=== PATIENT | male | born 1975 | race Two or more races ===

== ENCOUNTER 2016-05-27 08:59 | Emergency (ER) | payer OTHER ==
--- NOTE | 2016-05-27 10:23 | RAD ---
EXAMINATION:CHEST - 2 VIEWS CLINICAL INDICATION: Chest pain. Fall injuries to left side. COMPARISON:none FINDINGS: The cardiomediastinal silhouette is within normal limits. There is no adenopathy identified. There is a left pleural effusion. Subsegmental left basilar atelectasis is noted as well. There is no visible pneumothorax currently. A right lung is clear. There are subtle cortical irregularities involving the left seventh and eighth ribs. Nondisplaced fractures are suspected. IMPRESSION: Possible left seventh and eighth rib fractures with secondary left pleural effusion and basilar atelectasis. There is no visible pneumothorax.
[2016-05-27] MEDS ORDERED: IBUPROFEN 600 MG TABLET ONE (10:52)
[2016-05-27] MEDS ORDERED: ACETAMINOPHEN 325 MG TABLET ONE (10:52)
== END 2016-05-27 11:11 | disposition home or self-care (01) ==
LOC: ED 08:59
DX: S22.32XA Fracture of one rib, left side, initial encounter for closed fracture (principal); W17.89XA Other fall from one level to another, initial encounter; Y93.01 Activity, walking, marching and hiking; Y92.9 Unspecified place or not applicable
CPT/HCPCS: 71020; 94010; 99283 ×2; A9270 ×2

== ENCOUNTER 2016-06-30 20:43 | Emergency (ER) | payer OTHER ==
[2016-06-30] MEDS ORDERED: HALOPERIDOL LACTATE 5 MG/1 ML AMP ONE (21:15)
[2016-06-30] MEDS ORDERED: MULTIVITAMINS 10 ML, THIAMINE HCL 100 MG, FOLIC ACID 2 MG, MAGNESIUM SULFATE 1 G/2 ML 2... IV ONE ×5 (21:15)
[2016-06-30] MEDS ORDERED: LORAZEPAM 2 MG/ML 1ML SDV ONE ×2 (21:16→21:45)
[2016-06-30 21:25] LABS: ABSOLUTE NEUTROPHIL COUNT 4.6 K/mm3 (1.8-7.7); BASO # 0.1 K/mm3 (0.0-0.2); BASO % 0.8 % (0.2-1.0); EOS # 0.3 (0.0-0.5); EOS % 3.2 % (0.9-2.9); HEMOGLOBIN 15.7 gm/l (14.0-18.0); IMM NEUT% 0.2 % (0-1); LYMPH # 2.4 (1.0-4.8); LYMPH % 28.1 % (15-45); MEAN CELL VOLUME 95.8 fl (80.0-94.0); MEAN CORPUSCULAR HEMOGLOBIN 32.7 pg (27.0-31.0); MEAN CORPUSCULAR HGB CONC 34.1 g/dl (33.0-37.0); MEAN PLATELET VOLUME 9.5 fl (7.4-10.4); MONO # 1.1 (0.0-0.8); MONO % 12.5 % (4-12); NEUT % 55.2 % (43-75); PLATELET COUNT 272 K/mm3 (130-400); RED CELL DISTRIBUTION WIDTH 12.7 % (11.5-14.5)
[2016-06-30 21:42] LABS: ALB/GLOB RATIO 1.4 (>1.0); ALBUMIN 4.4 gm/dL (3.5-5.7); CALCIUM 9.3 mg/dL (8.6-10.3)
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
== END 2016-07-01 06:16 | disposition home or self-care (01) ==
LOC: ED 20:43
DX: F10.129 Alcohol abuse with intoxication, unspecified (principal); Y90.8 Blood alcohol level of 240 mg/100 ml or more; S01.21XA Laceration without foreign body of nose, initial encounter; S09.90XA Unspecified injury of head, initial encounter; M47.812 Spondylosis without myelopathy or radiculopathy, cervical region; Z78.1 Physical restraint status; X58.XXXA Exposure to other specified factors, initial encounter; Y92.410 Unspecified street and highway as the place of occurrence of the external cause
CPT/HCPCS: 85025; 80053; 80307; 72125; 70450; 96375 ×2; 96376; 99284 ×2; 96365; J2060; J1630; J3475; J3411; J7030